=== PATIENT | female | born 1995 | race Two or more races ===

== ENCOUNTER 2016-10-29 18:35 | Emergency (ER) | payer OTHER ==
[2016-10-29] MEDS ORDERED: IOPAMIDOL 370 (76%) 100 ML VIAL IV ONE (18:36)
[2016-10-29] MEDS ORDERED: PROCHLORPERAZINE 5 MG/ML 2 ML VIAL ONE (19:30)
[2016-10-29] MEDS ORDERED: MORPHINE SULFATE 4 MG/ML SYRINGE ONE (19:30)
[2016-10-29] MEDS ORDERED: LACTATED RINGERS 1,000 ML ONE (19:30)
[2016-10-29 19:47] LABS: ABSOLUTE NEUTROPHIL COUNT 2.5 K/mm3 (1.8-7.7); BASO % 0.8 % (0.2-1.0); HEMATOCRIT 37.5 % (37.0-47.0); HEMOGLOBIN 12.6 gm/l (12.0-16.0); LYMPH # 2.2 (1.0-4.8); LYMPH % 44.4 % (15-45); MEAN CELL VOLUME 92.8 fl (81.0-99.0); MEAN CORPUSCULAR HEMOGLOBIN 31.2 pg (27.0-31.0); MEAN CORPUSCULAR HGB CONC 33.6 g/dl (33.0-37.0); MEAN PLATELET VOLUME 13.1 fl (7.4-10.4); MONO # 0.3 (0.0-0.8); MONO % 6.2 % (4-12); NEUT % 48.6 % (43-75); PLATELET COUNT 171 K/mm3 (130-400); RED CELL DISTRIBUTION WIDTH 11.9 % (11.5-14.5)
[2016-10-29 19:57] LABS: ALB/GLOB RATIO 1.8 (>1.0); ALBUMIN 4.8 gm/dL (3.5-5.7); CALCIUM 9.6 mg/dL (8.6-10.3)
[2016-10-29 20:08] LABS: SPECIFIC GRAVITY 1.015 (1.001-1.030); URINE BILIRUBIN NEGATIVE (NEGATIVE); URINE BLOOD NEGATIVE (NEGATIVE); URINE GLUCOSE (UA) NEGATIVE (NEGATIVE); URINE LEUKOCYTE ESTERASE NEGATIVE (NEGATIVE); URINE NITRITE NEGATIVE (NEGATIVE); URINE PROTEIN NEGATIVE (NEGATIVE); URINE UROBILINOGEN NORMAL (0-1 mg/dl)
[2016-10-29 20:32] LABS: URINE APPEARANCE CLEAR; URINE COLOR YELLOW
--- NOTE | 2016-10-29 21:03 | CT ---
CT ABDOMEN AND PELVIS WITH CONTRAST HISTORY: Upper abdominal pain, lower back pain, vomiting, diarrhea TECHNIQUE: Following intravenous administration of 100cc of Isovue-370, contiguous axial images were acquired from the lung bases to the ischial tuberosities. Oral contrast was not administered. COMPARISON:None. FINDINGS: LUNG BASES: No gross airspace consolidation or pleural effusion. LIVER: No focal lesion. SPLEEN: No focal lesion. PANCREAS: No focal lesion. ADRENAL GLANDS: No mass effect. KIDNEYS: No focal lesion. No collecting system dilatation. GALLBLADDER: Present. BOWEL: Moderate fecal loading. Limited assessment of the distal colon due to decompression. Borderline prominence of a single loop of jejunum at the left upper quadrant, otherwise, no abnormal small bowel dilatation. Minor nonspecific small bowel wall enhancement. APPENDIX: Normal gas-filled appendix. PELVIC ORGANS: No gross mass effect. FREE FLUID: No gross free fluid identified. ABDOMINOPELVIC LYMPH NODES: No abnormally enlarged lymph nodes identified. ABDOMINAL AORTA: Normal caliber. OSSEOUS STRUCTURES: No grossly destructive lesions. IMPRESSION: 1. Nonobstructive appearance of bowel. Normal appendix. Minor small bowel wall enhancement can indicate enteritis. 2. No gross free fluid or adnexal mass effect. 3. Nonobstructive appearance of the kidneys with normal enhancement pattern. Results were electronically transmitted to the electronic medical record at 10/29/2016 at 2059 hours.
== END 2016-10-29 21:43 | disposition home or self-care (01) ==
LOC: ED 18:35
DX: R19.7 Diarrhea, unspecified (principal); R10.9 Unspecified abdominal pain; E05.90 Thyrotoxicosis, unspecified without thyrotoxic crisis or storm
CPT/HCPCS: 83690; 84703; 85025; 80053; 81003; 74177; 99284 ×2; 96374; 96361; 93005; J2270; J7120; Q9967